=== PATIENT | male | born 1965 | race Caucasian/White ===

== ENCOUNTER 2021-06-29 11:30 | Outpatient (RCR) | payer BC, SELFPAY ==
--- NOTE | 2021-05-31 07:57 | HP.PTEVAL ---
Patient's Visit Information ELTON VILLALBA is a 56 year old M referred to Physical Therapy by Dr. Nicola Nieto MD with a diagnosis of LBP, knee OA L. Date of Evaluation: 05/31/21 Physical Therapist: Galo Irwin DPT, OCS, CSCS - Visit Plan Frequency: 2-3x /Week Duration: 4-6 Weeks Plan: 2-3x/week for 4-6 weeks for initially pool based therapy focussing on hip flexor stretches, LE strength emphasizing neutral spine position in and out of water and core strength. LB ROM. Progress to I home program as tolerated. Pt will be on vacation next weeka nd we will work around that for 3 weeks in the water then reconsider water vs home vs gym as helpful. - Subjective B knees hurt. H/o arthroscopic shots and lub shots in both knees. Was limping prior to starting recent antiinflammatory. Pain in knees up to 4/10 L>R and standing up and still more than 30 seconds really hurts. Needs to move.Pain is medial and posterior. L hip hurts in groin and with WB. Worse with steps in L groin. LB is bone to bone on last couple vertebrae. Pain is lower L and up to 4/10 over the weekend. Worse with bending and stepping wrong. Had PT in the past 3 yrs ago adn it helped. No numbness or tingling. Saw doctor last week and recommended PT and back in 6 weeks for surgical intervention. Sleep is interrupted sometimes due to discomfort. 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 Is typically OK at desk but hurts when gets up to move. Steps is a chore at work. Hobbies: Enjoys hiking but cannot do it anymore. Cutting wood has to be very careful. House duties are slow and cautious. Basic ADLs are getting done. - Pain LBP Pain Intensity (Out of 10): 1 Pain Intensity Range: 0, 4 B knees Pain Intensity (Out of 10): 0 Pain Intensity Range: 0, 6 Comment: usually 0 at rest. - Objective Walks slow and stiff but I. Trasnfers with pain LB but I. Steps reciprocal with some L weakness evident adn painful but can do with one rail. 0-112 AROM B knees, stiff and painful end of flexion B. Hips move well but painful with IR immediately and 15 degree ROM, EXT rotation to 45 and slight pain. Felxion to 100 with pain L >R. Ankle aROM WFL. Strefngth LE 4/5 except L knee ext and hip ext/abd at 4-. Pain with resisted ext L>R. reflexes 2/3 B patella and achilles. Sensation WNL to gross lgiht touch in B LE. + scour L hip. - bounce home B, + scour B knees. LB AROM ext max limited and painful, flexion tight in LE but no pain. L SB painful and slight limited, R SB WNL. + compression test L/S. Hard time moving pelvis at first either direction. hip flexors max tight B, HS min tight, quads mod tight. - Goals Goal 1:: I approp Pool or home based ex to minimize future problems/pain. Goal Time Frame: 4-6 Weeks Goal 2:: Sleep without interruption at night. Goal Time Frame: 4-6 Weeks Goal 3:: Pt feel 75% improved LBP, hip pain and knee pain Goal Time Frame: 4-6 Weeks Goal 4:: Steps at work without moticing increased symptoms. Goal Time Frame: 4-6 Weeks - Rehabilitation Potential Physical Therapy Diagnosis: degenerative changes LB, hips and knees limiting painfree function. Rehabilitation Potential: Fair - Anticipated Interventions Patient/Client Instruction: Educate patient on: Condition, Plan of Care For the Purpose of:: To decrease pain, To increase ROM, To improve muscle performance and motor function Therapeutic Exercise to Include: Strength training, Postural training, Flexibilty training, In an aquatic setting, Passive ROM, Active ROM, Dynamic Lumbar Stabilization For the Purpose of:: To decrease pain, To increase ROM, To improve muscle performance and motor function, To increase tolerance to activity/condition/position, To improve ability of physical actions for home/community/work/leisure Thank you for the opportunity to evaluate your patient. For Medicare and Medicare HMO plans, please review the plan of care and approve it. It will need to be FAXED BACK to us at [phone] for Medicare purposes. For Medicare only, by signing this I certify the plan of care. Please let me know if there are questions or concerns regarding this plan of care. Physician Signature: Date:
--- NOTE | 2021-08-27 07:24 | HP.PT.NRP ---
ELTON VILLALBA was seen in my office for initial evaluation on 05/31/21. The following Plan of Care was established for this patient: Initial Frequency: 2-3x /Week Initial Duration: 4-6 Weeks Patient/Client Instruction: Educate patient on: Condition, Plan of Care For the Purpose of:: To decrease pain, To increase ROM, To improve muscle performance and motor function Therapeutic Exercise to Include: Strength training, Postural training, Flexibilty training, In an aquatic setting, Passive ROM, Active ROM, Dynamic Lumbar Stabilization For the Purpose of:: To decrease pain, To increase ROM, To improve muscle performance and motor function, To increase tolerance to activity/condition/position, To improve ability of physical actions for home/community/work/leisure This patient was last seen in our office 06/29/21. Pertinent comments regarding their Physical therapy will appear below: Pt seen 8 visits and was 20% better. She cancelled her last couple visits stating she is done with PT. At this point, I will discontinue due to nonattendance. At this point I will be discontinuing this patient from physical therapy. I would be happy to see this patient again in the future if found appropriate by the physician. Thank you! Galo Irwin, DPT, OCS, CSCS Balance/Gait/Functional tests - Balance/Special Test Scores Oswestry Low Back Score: 12
== END 2021-06-29 19:00 | disposition home or self-care (01) ==
LOC: PT 11:30
PROVIDERS: PCP Nurse Practitioner Family; Referring Provider Specialist; Visit Provider Specialist
DX: M54.16 Radiculopathy, lumbar region (principal); M17.12 Unilateral primary osteoarthritis, left knee
CPT/HCPCS: 97113; 97162

== ENCOUNTER 2022-07-10 10:50 | Emergency (ER) | payer BC, SELFPAY ==
[2022-07-10 10:52] VITALS: BP 137/88; PULSE 94; RESP 20; TEMP 36.5; O2SAT 95; BMI 34.9
--- NOTE | 2022-07-10 11:07 | VDLE_ITS ---
Reason For Study: Swelling Procedure LEFT This is a venous duplex using B-mode, color GSV is normal. flow and spectral Doppler. CFV is compressible, spontaneous, phasic, Exam performed portable in ED. competent, and demonstrates normal A preliminary report was called and/or faxed augmentation. to ED. FV is compressible, spontaneous, phasic, competent and demonstrates normal augmentation. POP V is compressible, spontaneous, phasic, competent and demonstrates normal augmentation. T/P Trunk is compressible. PTV is compressible. LT PerV is compressible. Left GastrocV is partially noncompressible with minimal venous flow noted. VL/Venous Duplex US, Unilateral Interpretation Summary Deep veins of the left lower extremity are patent and compressible segmentally. There is no evidence of left lower extremity deep vein thrombosis. The left great saphenous vein steven ears patent and compressible segmentally. Ordering Physician: Matthew Edward Referring Physician: Kinjal Lovett Performed By: Jesika Maria RVT
--- NOTE | 2022-07-10 11:07 | CT_ITS ---
We are attempting to reach an attending provider to discuss findings. An addendum with communication details will be sent when the communication is complete. STUDY: CTA CHEST REASON FOR EXAM: Male, 57 years old. Shortness of bREATH TOTAL KNEE REPLACEMENT 4 DAYS AGO RADIATION DOSAGE (If Supplied By Facility): CTDIvol = ( 17.42 ) mGy, DLP = ( 706.59 ) mGycm TECHNIQUE: The examination was performed with the intravenous administration of IV 100mL Isovue-370. Post-processing of the angiographic images was performed, with multiplanar reformation and 3D reconstruction. Individualized dose optimization techniques were used for this CT. COMPARISON: None. FINDINGS: Within the left lower lobe interlobar pulmonary artery there is a filling defect seen on series 2 image 108 with corresponding filling defect seen on the coronal reconstructions on series 601 image 173. Findings are suspicious for pulmonary embolus measuring 0.46 cm in diameter. The main pulmonary artery, right pulmonary artery, left pulmonary artery and more peripheral right pulmonary arterial vasculature demonstrates no evidence of pulmonary embolus. Normal thoracic aorta and visualized great vessels. There is no demonstrated aortic dissection. Normal heart and pericardium. Normal mediastinum. Normal hilar regions. Normal visualized trachea and bronchi. The lungs are well expanded. Mild dependent atelectasis left lower lobe. Remainder of lungs clear. Normal pleura. Normal chest wall structures. Normal osseous structures. Fatty infiltration of the imaged portion of the liver. Status post cholecystectomy. CT/CTA Chest W/WO Contrast IMPRESSION: Left lower lobe interlobar pulmonary artery demonstrates 0.46 cm filling defect suspicious for pulmonary embolus. Mild left lower lobe atelectasis. Electronically Signed: Toy Luna MD, GAUTAM at 12:48 EDT ,
--- NOTE | 2022-07-10 11:12 | EDS_ITS ---
HPI History of Present Illness Chief Complaint: Shortness of Breath Narrative Narrative: 57-year-old male presents with his because of shortness of breath and lightheadedness status post left TKA by Dr. Nieto on , 4 days ago. When he had arthroscopic knee surgery previously he developed pulmonary emboli. He is currently taking Xarelto. He presents because early in the morning at 1:00 he became short of breath. He denies any increased leg swelling of his left lower extremity but noticed there is a sore in the popliteal area of his left leg. He denies any chest pain but states that he became short of breath. His states that they called the on-call physician, and was told to follow- up on Monday. He remains short of breath when he woke up this morning and when he was in the shower became lightheaded. He and his state they called Dr. Nieto who instructed him to come to the emergency department for evaluation to rule out pulmonary embolism. He denies any exacerbating or alleviating factors. PFSH PFSH Home Medications albuterol sulfate 90 mcg/actuation aerosol inhaler (ProAir HFA) 2 puff inhalation BID 07/25/16 [History Last Taken 07/29/16 05:55] aspirin 325 mg tablet 325 mg PO DAILY@0800 07/25/16 [History Last Taken 07/29/16 05:55] celecoxib 100 mg capsule 100 mg PO QHS 07/25/16 [History Last Taken Unknown] lamotrigine 100 mg tablet 100 mg PO BID 07/25/16 [History Last Taken 07/29/16 05:55] metoprolol tartrate 50 mg tablet 50 mg PO BID 07/25/16 [History Last Taken 07/29/16 05:55] rivaroxaban 15 mg (42)-20 mg (9) tablets in a starter pack (Xarelto DVT-PE Treatment 30-Day Starter) See Rx Instructions PO .COMPLEX #51 tabs 07/10/22 [Rx Last Taken Unknown] Allergy/AdvReac Type Severity Reaction Status Date / Time Iodinated Contrast Media Allergy Angioedema Verified 07/10/22 10:53 [CONTRASTS] latex Allergy Rash, Verified 07/10/22 10:53 SWELLING contact metal agent AdvReac Rash Verified 07/10/22 10:53 Social History Smoking Status: Never smoker ROS ROS ED ROS Narrative Constitutional: No fever, no chills. HEENT: No sore throat. No neck pain. No loss of vision. No rhinorrhea. Cardiovascular: No chest pain. No palpitations. No pedal edema. Respiratory: No cough, positive shortness of breath. Abdominal: No abdominal pain. No nausea. No vomiting. Genitourinary: No dysuria. No hematuria. Musculoskeletal: No myalgias. Left knee pain, appropriate, denies increased swelling, states swelling of foot has lessened since surgery. Neurologic: No headaches. No dizziness. Positive lightheadedness. Skin: No rash. No change in color. Psychiatric: No depression. No anxiety. EXAM Physical Exam Narrative Exam Narrative: Afebrile. Vital signs noted. HEENT: Normocephalic. Atraumatic. PERRL, EOMI. Neck soft and supple. No point tenderness or step off. Cardiovascular: Regular rate and rhythm. No murmurs, rubs, or gallops appreciated. Respiratory: No tachypnea. Lungs clear to auscultation bilaterally. Gastrointestinal: Abdomen soft, nontender, with normoactive bowel sounds. No rebound or guarding. Neurological: Awake. Alert. Nonfocal, nonlateralizing. Skin: No rash. Small reddened area in popliteal fossa of left knee. Positive bandage. No gross erythema. No pallor. Musculoskeletal: Mild left pedal edema. Full range of motion extremities. Const Vital Signs: 07/10/22 10:52 07/10/22 11:11 07/10/22 13:44 Temperature 97.7 F L Temperature Source Temporal Pulse Rate 94 81 Respiratory Rate 20 H 21 H Respiratory Effort Normal Non-Labored Respiratory Depth Normal Respiratory Pattern Normal Blood Pressure 137/88 H 159/90 H Blood Pressure Mean 104 113 Pulse Ox 95 90 Oxygen Delivery Method Room Air Room Air Room Air MDM MDM MDM Narrative Medical decision making narrative: PE rule out will be obtained with CTA. Basic laboratories will be also obtained along with vascular study of the left lower extremity. The patient is on Xarelto. He does express that he has had an allergy to iodinated contrast. However, he states he has had multiple scans and usually receives Benadryl prior to any IV contrast. He was administered Benadryl 25 mg intravenously and Solu- Medrol 125 mg intravenously. EKG was obtained interpreted by myself which demonstrates normal sinus rhythm at [address] changes. No STEMI. Patient has slightly elevated white count of 12.1 which I think may be secondary to his recent surgery. Normal hemoglobin of 15.4, hematocrit 44.8 with platelet count normal at 228. His electrolyte panel is grossly unremarkable except for glucose 112 with BUN of 11 and creatinine 1.0. Normal anion gap of 5. His vascular scan of his left lower extremity does show left gastrocnemius vein is partially noncompressible with minimal venous flow noted. This is questionable on whether or not he has a DVT. CTA shows left lower lobe interlobar pulmonary artery pulmonary embolism of 0.46 cm but no evidence of infarct. He has mild left lower lobe atelectasis. His pulse ox has been 95% on room air and 94% on room air. I discussed patient with Dr. Nieto his orthopedic surgeon who is aware of his pulmonary embolism status post knee surgery. He would like this medically managed. Patient was taking Xarelto once daily as prophylaxis. Given that he now has possible DVT but known pulmonary embolism on CTA, he will start Xarelto 15 mg twice daily for 21 days, then increase it to 20 mg daily. He was written a prescription for a 30-day starter pack. Of note, the patient was able to ambulate with his walker here in the emergency department. His pulse ox only dropped to 91% on room air. It was noted that he did have atelectasis. While RN stated that he became lightheaded, through shared decision making with the patient and his , he would like to be discharged on his anticoagulant and follow-up with his primary care physician. I do feel he can be discharged safely home with close follow-up and merits outpatient treatment for his pulmonary embolism/possible DVT in the gastrocnemius vein. Patient and his are comfortable with the plan. Disposition is discharged home in stable condition. Lab Data Attestation: I reviewed the patient's lab results. Labs: Laboratory Results - last 24 hr 07/10/22 07/10/22 11:04 11:04 WBC 12.1 H RBC 4.97 Hgb 15.4 Hct 44.8 MCV 90.1 MCH 31.0 MCHC 34.4 RDW Std Deviation 41.1 RDW Coeff of Rebecca 12.4 Plt Count 228 MPV 9.7 Immature Gran % (Auto) 0.600 Neut % (Auto) 70.8 H Lymph % (Auto) 18.8 L [place] % (Auto) 9.0 Eos % (Auto) 0.4 Baso % (Auto) 0.4 Absolute Neuts (auto) 8.5 H Absolute Lymphs (auto) 2.27 Nucleated RBC % 0 Sodium 139 Potassium 3.8 Chloride 104 Carbon Dioxide 30.0 Anion Gap 5 BUN 11 Creatinine 1.08 Estim Creat Clear Calc 83.23 Est GFR (MDRD) Af Amer 90 Est GFR (MDRD) Non-Af 74 BUN/Creatinine Ratio 10.2 Glucose 112 H Calcium 9.2 Radiography Diagnostic Testing: Clinical Impression(s) from Imaging Studies Chest CTA 07/10/22 11:07 IMPRESSION: Left lower lobe interlobar pulmonary artery demonstrates 0.46 cm filling defect suspicious for pulmonary embolus. Mild left lower lobe atelectasis. Electronically Signed: Toy Luna MD, GAUTAM at 12:48 EDT Reading Location ID and State: [facility] / [place] Tel , Service support , ADDENDUM: 07/10/22 1304 IMPRESSION: undefined ADDENDUM: 07/10/22 1310 IMPRESSION: undefined Discharge Plan Triage Chief Complaint: Shortness of Breath ED Provider: Matthew Edward Dx/Rx/DC Orders Clinical Impression: Pulmonary embolism, Lightheadedness, DVT (deep venous thrombosis) Prescriptions: New Xarelto DVT-PE Treat 30d Start 15 mg (42)- 20 mg (9) tablets,dose pack See Rx Instructions .ROUTE .COMPLEX Qty: 51 0RF Rx Instructions: take one-15 mg tablet twice daily for 21 days, then one-20 mg tablet once daily; must take with meal/food No Action aspirin 325 MG tablet 325 mg PO DAILY@0800 metoprolol tartrate 50 MG tablet 50 mg PO BID Label Comments: HEART RATE albuterol sulfate [ProAir HFA] 1 PUFF inhaler 2 puff inhalation BID Label Comments: INHALE 2 PUFF BY INHALATION ROUTE 3- 6 TIMES EVERY DAY celecoxib 100 MG capsule 100 mg PO QHS lamotrigine 100 MG tablet 100 mg PO BID Label Comments: SEIZURES Primary Care Provider: Michelle Del Real NP Referrals: Michelle Del Real NP, RV REPAIR TECHNICIAN-C [Primary Care Provider] - Disposition Disposition: Home, Self Care
[2022-07-10] MEDS: MethylPREDNISolone 125 MG/2 ML Vial IV (11:16)
[2022-07-10] MEDS: 0.9% Normal Saline 1,000 ML 999 ML IV (11:16)
[2022-07-10] MEDS: DiphenhydrAMINE 50 MG/ML Syringe 25 MG IV (11:16)
[2022-07-10 11:20] LABS: Absolute Lymphocyte Count 2.27 X10^3/uL (0.83-4.51); Absolute Neutrophil Count 8.5 X10^3/uL (2.0-7.7); Basophil# 0.05 X10^3/uL; Basophil% 0.4 % (0-1); Eosinophil# 0.05 X10^3/uL; Eosinophils% 0.4 % (0-5); Hematocrit 44.8 % (40-54); Hemoglobin 15.4 g/dL (13.0-16.5); Lymphocyte # 2.27 X10^3/ul (0.83-4.51); Lymphocyte % 18.8 % (19-41); Mean Corp Hgb Conc 34.4 g/dL (32-36); Mean Corpuscular Volume 90.1 fL (80-94); Mean Platelet Vol. 9.7 fl (6.2-12.0); Monocyte# 1.08 X10^3/uL; NRBC Flagged by Analyzer 0 % (0-5); Neutrophil # 8.53 X10^3/uL (2.7-7.7); Neutrophil % 70.8 % (47-70); Platelet Count 228 K/mm3 (150-450); RBC Distribution Width CV 12.4 % (11.6-14.6); RBC Distribution Width SD 41.1 fl (35.1-43.9); Red Blood Count 4.97 M/mm3 (4.6-6.2); White Blood Count 12.1 K/mm3 (4.4-11.0)
[2022-07-10 11:32] LABS: Anion Gap 5 (5-15); BUN 11 mg/dL (7-18); BUN/Creat Ratio 10.2 RATIO (10-20); Calcium,Total 9.2 mg/dL (8.5-10.1); Chloride 104 mmol/L (98-107); Creatinine, Serum 1.08 mg/dL (0.70-1.30); EST Glomerular Filtration Rate 74 mL/min (>60); Est Glom Filt Rate - Afr Amer 90 mL/min (>60); Estimated Creatinine Clearance 83.23 ml/min; Glucose 112 mg/dL (74-106); Potassium 3.8 mmol/L (3.5-5.1); Sodium Level 139 mmol/L (136-145)
--- NOTE | 2022-07-10 11:40 | EKG12_ITS ---
Test Reason : Blood Pressure : / mmHG Vent. Rate : 085 BPM Atrial Rate : 085 BPM P-R Int : 186 ms QRS Dur : 084 ms QT Int : 376 ms P-R-T Axes : 003 -26 027 degrees QTc Int : 447 ms Normal sinus rhythm Poor R wave progression Confirmed by ELAINE EAGLE, AB ([id number]), supervising editor trailer AVIVA GRAVES ([id number]) on 07/12/2022 7:32:45 AM Referred By: ROVERTO Confirmed By:AB HENRY MD
[2022-07-10 13:44] VITALS: BP 159/90; PULSE 81; RESP 21; O2SAT 90
--- NOTE | 2022-07-10 14:10 | ED.RN ---
WALKED PT WITH O2 SENSOR. DROPPED TO 91%, PT C/O SOB, LIGHTHEADEDNESS, SWEATING
[2022-07-10] MEDS: Rivaroxaban 15 MG Tablet PO (14:32)
[2022-07-10 14:37] VITALS: BP 167/89; PULSE 84; RESP 16; O2SAT 96
== END 2022-07-10 14:42 | disposition home or self-care (01) ==
PROVIDERS: Emergency Provider Emergency Medicine; PCP Nurse Practitioner Family; Visit Provider Emergency Medicine
DX: I26.99 Other pulmonary embolism without acute cor pulmonale (principal); M79.89 Other specified soft tissue disorders; R42 Dizziness and giddiness; Z79.82 Long term (current) use of aspirin; Z79.01 Long term (current) use of anticoagulants; Z79.899 Other long term (current) drug therapy; Z91.041 Radiographic dye allergy status; Z86.711 Personal history of pulmonary embolism
CPT/HCPCS: 71275; 80048; 85025; 93005; 93971; 96361; 96374; 96375; 99284; J7030; Q9967; A4216

== ENCOUNTER → 2023-07-03 | Outpatient (CLI) | payer BC, SELFPAY ==
[2023-07-03 09:50] LABS: Synovial Fld Mononuclear WBC # 0.391 10^3/ul; Synovial Fld Mononuclear WBC % 65.5 %; Synovial Fld Polynuclear WBC # 0.206 10^3/uL; Synovial Fld Polynuclear WBC % 34.5 %
[2023-07-03 09:52] LABS: RBC /Synovial Fluid 0.013 10^6/uL (0)
[2023-07-03 10:05] LABS: AUTO B FLUID DILUENT BKGD CT WBC <0.1 RBC <0.01 (W<.1,R<.01); Source / Synovial Fluid LEFT KNEE
[2023-07-03 10:06] LABS: Appearance /Synovial Fluid Sl Cl (CLEAR); Color / Synovial Fluid Pink (Pale Yellow)
[2023-07-03 12:30] LABS: Body Fluid QC Type(s) BF1Q; Lymph 68 %; Monocyte /Synovial Fluid 22 %; Neutrophil 8 % (0-25); Other Cell /Synovial Fluid 2 %
[2023-07-05 07:39] LABS: Pathologist Comment Reviewed
== END | disposition home or self-care (01) ==
LOC: LAB 09:02
PROVIDERS: PCP Nurse Practitioner Family; Visit Provider Specialist
DX: M25.562 Pain in left knee (principal); M25.462 Effusion, left knee; Z96.652 Presence of left artificial knee joint
CPT/HCPCS: 87015; 87070; 87075; 87102; 87116; 87205; 87206; 89050; 89051

== ENCOUNTER → 2023-07-12 | Outpatient (CLI) | payer BC, SELFPAY ==
--- NOTE | 2023-07-12 12:29 | CT_ITS ---
STUDY: CT CHEST WITH CONTRAST REASON FOR EXAM: Male, 58 years old. SOB, MCP, PVC, CLAUDIA, limited chest over-read ONLY. RADIATION DOSAGE (If Supplied By Facility): CTDIvol = ( 6.71 ) mGy, DLP = ( 1438.27 ) mGycm TECHNIQUE: Transaxial imaging was performed following intravenous administration of IV 75mL Isovue-370. Individualized dose optimization techniques were used for this CT. COMPARISON: Comparison is made with prior study dated July 10, 2022. FINDINGS: CHEST Mild degree of dependent bibasilar atelectasis. There is no demonstrated pleural abnormality. There are mild calcifications of the coronary arteries. Normal mediastinum. Normal hilar regions. Normal unenhanced pulmonary arteries. Mild degree of atherosclerotic calcification of the aortic arch. Normal osseous structures. Fatty infiltration of the liver. CT/Limited Chest CT Cardiac Only IMPRESSION: Mild degree of coronary artery calcification. Fatty infiltration of the liver. Electronically Signed: Trung Johnson MD at 10:22 EDT ,
[2023-07-12 12:52] VITALS: BP 144/78; PULSE 77; RESP 16; O2SAT 95; BMI 36.3
[2023-07-12 13:18] LABS: EGFR FINGERSTICK > 60.0000 mL/min (>60)
[2023-07-12 13:38] VITALS: BP 138/71; PULSE 71
[2023-07-12] MEDS: Nitroglycerin SL (ED/IMG/CATH) 0.4 MG TABLET SL (13:38)
[2023-07-12 13:45] VITALS: BP 148/70; PULSE 70; RESP 16; O2SAT 94
--- NOTE | 2023-07-18 16:43 | CCTA.WCONT ---
CCTA w/Cont Coronary Arteries Date of Study:: 07/12/23 SOB/PVCs Coronary Calcium Scoring: High-resolution Computed Tomographic imaging of the chest was performed on [07/12/23 ], with particular attention paid to the coronary arteries. Intravenous contrast agent was administered per protocol and images reconstructed and displayed. LEFT MAIN CORONARY ARTERY: Arises from the left coronary cusp with no significant stenosis noted [] LEFT ANTERIOR DESCENDING CORONARY ARTERY: Arises from the left main coronary artery with mild calcification but no significant stenosis present a large first diagonal branch is noted. [] LEFT CIRCUMFLEX CORONARY ARTERY: Mild atherosclerotic plaquing is noted with no significant stenosis present [] RIGHT CORONARY ARTERY: Dominant large vessel with no significant stenosis present. Conclusion: Coronary CT angio with no significant atherosclerotic obstruction noted. [
== END | disposition home or self-care (01) ==
LOC: CT 12:22
PROVIDERS: PCP Nurse Practitioner Family; Referring Provider Nurse Practitioner Family; Visit Provider Nurse Practitioner Family
DX: R06.02 Shortness of breath (principal); I34.1 Nonrheumatic mitral (valve) prolapse; I49.3 Ventricular premature depolarization; G47.33 Obstructive sleep apnea (adult) (pediatric)
CPT/HCPCS: 75574; 76380; Q9967